=== PATIENT | female | born 1970 | race Caucasian/White ===

== ENCOUNTER 2016-12-27 12:07 | Emergency (ER) | payer BC ==
[2016-12-27 12:10] VITALS: BP 143/57
--- NOTE | 2016-12-27 17:17 | ED.ADGEN ---
Past History Past Medical History: No Pertinent History Past Surgical History: No Surgical History Alcohol Use: Rarely Drug Use: None Adult General Chief Complaint Chief Complaint Genital abscess HPI HPI Patient is a 46-year-old white female presents with soft tissue swelling, pain tenderness of external genitalia. She noted small bump approximately one week ago, which she squeezed and expressed pus. Gradually, her labia minora is swollen and become more swollen the past 2 days. She is unable to be seen by her PCP or [facility] until next week. Patient has history of Bartholin cysts. Review of Systems Review of Systems Review of symptoms as per history of present illness. Allergies Allergies Allergies Coded Allergies Type Severity Reaction Last Updated Verified No Known Drug Allergies 12/27/16 No Physical Exam Physical Exam Constitutional: Well developed, well nourished, alert discomfort secondary to pain. Genitalia: Started genitalia, right anterior labia minora tender, swollen and fluctuant approximately 3 times the size of left labia minora. No surrounding edema or cellulitis. Neurologic: Alert and oriented X 3, normal motor function, normal sensory function, no focal deficits noted. Psychologic: Affect normal, judgement normal, mood normal. [] Current Patient Data Vital Signs Vital Signs Date Time Temp Pulse Resp B/P Pulse Ox O2 Delivery O2 Flow Rate FiO2 12/27/16 12:10 98.0 77 18 100 Room Air EKG EKG [] Radiology/Procedures Radiology/Procedures [Incision and drainage Verbal consent was obtained to drain labia minora abscess. Area was prepped with Betadine in the region of greatest fluctuance was injected with 0.5 mL of 1 % lidocaine without epinephrine following which a simple stab incision was made with a #11 blade. Copious amount of purulent material was expressed. The wound was then milked for further and explored for loculations and irrigated. Attempt made pack wound was discontinued due to patient comfort] Impressions: Labial abscess Course & Med Decision Making Course & Med Decision Making Pertinent Labs and Imaging studies reviewed. (See chart for details) [Successful I&D of labial abscess. Will place patient on brief course of antibiotics with instructions to follow-up with [facility] next week.] Final Impression Final Impression [#1 labial abscess] Problems: Dragon Disclaimer Dragon Disclaimer This electronic medical record was generated, in whole or in part, using a voice recognition dictation system. LOLA RIVERA DO Dec 27, 2016 17:17
== END 2016-12-27 12:42 | disposition home or self-care (01) ==
LOC: ER 12:07
DX: N76.4 Abscess of vulva (principal)
CPT/HCPCS: 56405; 99284-25

== ENCOUNTER 2017-01-11 10:40 | Emergency (ER) | payer BC ==
[~2017-01-11] VITALS: Ht 172.7 cm; Wt 108.0 kg
[2017-01-11 10:40] VITALS: BP 121/57
[2017-01-11 11:28] LABS: BILIRUBIN,URINE NEG (NEG); CLARITY,URINE CLEAR; COLOR,URINE ORANGE
[2017-01-11 11:30] LABS: BACTERIA,URINE 0 /HPF (0-FEW); SQUAMOUS EPITHELIAL CELL,UR MOD /LPF
[2017-01-11] MEDS ORDERED: KETOROLAC 60 MG/2 ML VIAL. IM ONE (12:15)
--- NOTE | 2017-01-11 12:46 | RAD ---
CT of the abdomen and pelvis without contrast, 01/11/2017: History: Left flank pain Noncontrast scans were obtained through the urinary tract utilizing the renal stone protocol. No intrarenal calculi are identified. The right renal collecting system and right ureter are unremarkable. There are several bilateral pelvic calcifications compatible with phleboliths. There is slight dilatation of the left ureter. There is a 5 x 2 mm radiopacity along the posterior wall of the urinary bladder on the left compatible with a calculus lodged in the intramural segment of the distal left ureter. The partially filled urinary bladder is otherwise unremarkable. The unopacified liver is unremarkable. No gallbladder abnormality is seen. The pancreas is unremarkable. The spleen is within normal limits in size. The abdominal aorta is of normal caliber. No abdominal or pelvic adenopathy is seen. Several moderate sized low density foci are seen in the cervical region compatible with nabothian cysts. There is a 1.5 cm cyst in the left ovary and a 3.5 cm cyst in the right ovary. The bowel loops are not dilated. The appendix is visualized and shows no abnormality. No free fluid or free air is evident in the abdomen or pelvis. There is bilateral spondylolysis at L5 with a mild spondylolisthesis at L5-S1. There is associated foraminal encroachment, worse on the left. IMPRESSION: Small obstructing calculus at the left ureterovesical junction. PQRS Compliance Statement: One or more of the following individualized dose reduction techniques were utilized for this examination: 1. Automated exposure control 2. Adjustment of the mA and/or kV according to patient size 3. Use of iterative reconstruction technique
--- NOTE | 2017-01-11 12:58 | PHYS DOC ---
General Chief Complaint: FLANK PAIN Stated Complaint: LEFT SIDE FLANK PAIN Time Seen by MD: 10:53 Source: patient Exam Limitations: no limitations Problems: History of Present Illness Initial Comments Pt is 46/F to ED c/o L flank pain. Pt states yesterday developed left flank pain and urinary hesitancy. Pain moderate yesterday, this am pain radiating to LLQ. Pain worse today, no trauma/ fever/chills/n/v/d/cp/sob/hematuria/weight loss. OTC meds not helping. Timing/Duration: 24 hours Severity: severe Modifying Factors: improves with other Associated Symptoms: other Allergies: Coded Allergies: No Known Drug Allergies (Unverified , 12/27/16) Past Medical History Medical History: no pertinent history Surgical History: noncontributory Social History Smoker: non-smoker Alcohol: rarely Drugs: none Review of Systems Constitutional: denies chills, denies diaphoresis, denies fever, denies malaise Respiratory: denies cough, denies shortness of breath Cardiovascular: denies chest pain, denies palpitations Gastrointestinal: denies diarrhea, denies nausea, denies vomiting Genitourinary: see HPI Musculoskeletal: see HPI Psychiatric/Neurological: denies headache, denies numbness, denies paresthesia Physical Exam General Appearance: WD/WN, moderate distress Neck: full range of motion, supple Respiratory: normal breath sounds, no respiratory distress Gastrointestinal: normal bowel sounds, non tender, soft, no organomegaly Back: no CVA tenderness, no vertebral tenderness Extremities: non-tender, normal inspection Neurologic/Psychiatric: wheel presser II-XII nml as tested, no motor/sensory deficits, alert, oriented x 3 Skin: normal color, warm/dry Orders, Labs, Meds UA invalid due to OTC AZO neg PATIENT: LENIN DORAN ACCOUNT: [id number] : 1970 LOCATION: ER AGE: 46 SEX: F EXAM STATUS: REG ER ORD. PHYSICIAN: PENELOPE WOODS DO REASON: L flank pain r/o stone PROCEDURE: ABDOMEN PELVIS WO CONTRAST CT of the abdomen and pelvis without contrast, 01/11/2017: History: Left flank pain Noncontrast scans were obtained through the urinary tract utilizing the renal stone protocol. No intrarenal calculi are identified. The right renal collecting system and right ureter are unremarkable. There are several bilateral pelvic calcifications compatible with phleboliths. There is slight dilatation of the left ureter. There is a 5 x 2 mm radiopacity along the posterior wall of the urinary bladder on the left compatible with a calculus lodged in the intramural segment of the distal left ureter. The partially filled urinary bladder is otherwise unremarkable. The unopacified liver is unremarkable. No gallbladder abnormality is seen. The pancreas is unremarkable. The spleen is within normal limits in size. The abdominal aorta is of normal caliber. No abdominal or pelvic adenopathy is seen. Several moderate sized low density foci are seen in the cervical region compatible with nabothian cysts. There is a 1.5 cm cyst in the left ovary and a 3.5 cm cyst in the right ovary. The bowel loops are not dilated. The appendix is visualized and shows no abnormality. No free fluid or free air is evident in the abdomen or pelvis. There is bilateral spondylolysis at L5 with a mild spondylolisthesis at L5-S1. There is associated foraminal encroachment, worse on the left. IMPRESSION: Small obstructing calculus at the left ureterovesical junction. PQRS Compliance Statement: One or more of the following individualized dose reduction techniques were utilized for this examination: 1. Automated exposure control 2. Adjustment of the mA and/or kV according to patient size 3. Use of iterative reconstruction technique DICTATED AND SIGNED BY: RASTA OTERO MD DATE: 01/11/17 1236 CC: PCP,NO; PENELOPE WOODS DO ~ Departure Time of Disposition: 13:13 Disposition: 01 HOME, SELF-CARE Diagnosis: Distal left ureterolithiasis, Condition: STABLE Patient Instructions: Diet for Kidney Stones, Kidney Stones, [id number] Additional Instructions: Work excuse thru 4/3. Aggressive hydration with gatorade, water. Rx: bactrim ds, zofran odt, flomax, norco 5mg #30 You will need to follow up with a urologist. Dr Ivan Torrez [facility] [address] [place] [address] call to schedule appointment. Return to ED with new or changing symptoms. PENELOPE WOODS DO Jan 11, 2017 12:58
[2017-01-11] MEDS ORDERED: SULF1TAB24 PO (13:13)
[2017-01-11] MEDS ORDERED: ONDA4TAB10 SL (13:13)
[2017-01-11] MEDS ORDERED: HYDR-971 PO (13:13)
[2017-01-11] MEDS ORDERED: TAMS0.4C97 PO (13:13)
== END 2017-01-11 13:35 | disposition home or self-care (01) ==
LOC: ER 10:40
DX: N20.1 Calculus of ureter (principal)
CPT/HCPCS: 74176; 81001; 81025; 96372; 99285; J1885

== ENCOUNTER → 2017-01-15 | Outpatient (CLI) | payer BC ==
[2017-01-11 12:17] VITALS: BP 117/59
[~2017-01-15] MED LIST: HYDR-971 PO; ONDA4TAB10 SL; SULF1TAB24 PO; TAMS0.4C97 PO
--- NOTE | 2017-01-15 10:32 | RAD ---
Abdomen radiograph History: Distal left ureteral calculus. Comparison: CT abdomen pelvis 01/11/2017. Findings: AP view of the abdomen. Bowel gas pattern is nonspecific, without evidence of obstruction. Both renal shadows are partially obscured by bowel gas and stool. Superior right renal shadow was not included on examination. No convincing calcifications seen over the expected course of either ureter. There are several calcifications in the pelvis. There is a roughly triangular calcification in the left hemipelvis which measures 4 mm in maximum dimension. It is uncertain if this represents the previously identified UVJ stone versus a nearby phlebolith. Impression: 1. 4 mm calcification is seen in the left hemipelvis. It is uncertain if this represents phlebolith versus persistent distal left ureteral stone.
== END | disposition home or self-care (01) ==
LOC: DXRAD 09:50
PROVIDERS: ATTEND Urology
DX: N20.1 Calculus of ureter (principal)
CPT/HCPCS: 74000

== ENCOUNTER 2017-12-01 13:29 | Emergency (ER) | payer OTHER ==
[~2017-12-01] VITALS: Ht 172.7 cm; Wt 108.0 kg
[2017-12-01] MEDS ORDERED: NOREPINEPHRINE BITARTRATE 8 MG in IV NORMAL SALINE 250ML 250 ML IV PRN (14:45)
[2017-12-01] MEDS ORDERED: IV NORMAL SALINE 1,000ML 1,000 ML IV ONE (14:45)
[2017-12-01] MEDS ORDERED: 0.9 % SODIUM CHLORIDE 10 ML DISP.SYRIN. IV PRN (14:45)
[2017-12-01 14:58] LABS: BASO # 0.1 x10^3/uL (0.0-0.2); BASO % 1 % (0-3); EOS # 0.4 x10^3/uL (0.0-0.7); EOS % 4 % (0-3); HEMATOCRIT 35.9 % (36.0-47.0); HEMOGLOBIN 12.4 g/dL (12.0-15.5); LYMPH # 0.8 x10^3/uL (1.0-4.8); LYMPH % 8 % (24-48); MEAN CORPUSCULAR HEMOGLOBIN 31 pg (25-35); MEAN CORPUSCULAR HGB CONC 35 g/dL (31-37); MEAN CORPUSCULAR VOLUME 90 fL (79-100); MONO # 0.8 x10^3/uL (0.0-1.1); MONO % 9 % (0-9); NEUT # 7.3 x10^3uL (1.8-7.7); NEUT % 78 % (31-73); PLATELET COUNT 284 x10^3/uL (140-400); RED BLOOD COUNT 3.98 x10^6/uL (3.50-5.40); RED CELL DISTRIBUTION WIDTH 12.8 % (11.5-14.5); WHITE BLOOD COUNT 9.3 x10^3/uL (4.0-11.0)
[2017-12-01 15:37] LABS: ALBUMIN 2.8 g/dL (3.4-5.0); ALBUMIN/GLOBULIN RATIO 0.6 (1.0-1.7); CALCIUM 8.9 mg/dL (8.5-10.1); CREATININE 0.8 mg/dL (0.6-1.0); GFR 77.6; POTASSIUM 3.9 mmol/L (3.5-5.1); TOTAL BILIRUBIN 0.4 mg/dL (0.2-1.0); TOTAL PROTEIN 7.4 g/dL (6.4-8.2)
--- NOTE | 2017-12-01 17:44 | PHYS DOC ---
Past History Past Medical History: No Pertinent History Past Surgical History: , Other Alcohol Use: Rarely Drug Use: None Adult General Chief Complaint Chief Complaint: POST-OP PROBLEM HPI HPI Patient is a 47 year old F who presents with fevers, chills and drainage from her surgical site. Sammie had a tummy tuck and liposuction on November 12, 2017. On November 29 she developed fever sweats and chills. She was started on an antibiotic on the which the last time that she was seen by her surgeon. Starting this morning she noted moderate drainage from her lower abdominal incision as well as from her belly button. She does feel that her lower abdomen is firm and mildly painful. She also has had associated fever with a MAXIMUM TEMPERATURE of 102.0 last night. Since that time she has been taking ibuprofen 800 mg every 6 hours, Tylenol and Aleve. She does feel that this is helped her symptoms. She has no other associated symptoms at this time. She has no other exacerbating or relieving factors this time Review of Systems Review of Systems Constitutional: Negative except history of present illness Eyes: Denies change in visual acuity, redness, or eye pain [] HENT: Denies nasal congestion or sore throat [] Respiratory: Denies cough or shortness of breath [] Cardiovascular: No additional information not addressed in HPI [] GI: Denies nausea, vomiting, bloody stools or diarrhea [] : Denies dysuria or hematuria [] Musculoskeletal: Denies back pain or joint pain [] Integument: Negative except history of present illness Neurologic: Denies headache, focal weakness or sensory changes [] Endocrine: Denies polyuria or polydipsia [] All other systems were reviewed and found to be within normal limits, except as documented in this note. Family History Family History No pertinent family medical history was reported Current Medications Current Medications Current Medications Medications (Trade) Dose Ordered Sig/Beto Start Time Stop Time Status Last Admin Dose Admin Norepinephrine Bitartrate 8 mg/ Sodium Chloride 258 ml @ 0 mls/hr CONT PRN 12/01/17 14:45 Sodium Chloride 1,000 ml @ 1,000 mls/hr 1X ONCE 12/01/17 14:45 12/01/17 15:45 DC 12/01/17 15:14 1,000 MLS/HR Sodium Chloride (Normal Saline Flush) 10 ml QSHIFT PRN 12/01/17 14:45 Allergies Allergies Allergies Coded Allergies Type Severity Reaction Last Updated Verified No Known Drug Allergies 12/27/16 No Physical Exam Physical Exam Constitutional: Well developed, well nourished, no acute distress, non-toxic appearance. [] HENT: Normocephalic, atraumatic, Eyes:EOMI, conjunctiva normal, no discharge. [] Neck: Normal range of motion, no tenderness, supple, no stridor. [] Cardiovascular:Heart rate regular rhythm, Lungs & Thorax: Bilateral breath sounds clear to auscultation [] Abdomen: Minimal drainage noted from the belly button with mild erythema noted around the wound. Suprapubic transverse incision noted to have minimal dehiscence approximately 10 cm with moderate purulent drainage as well as some serous sanguinous drainage. Surrounding the lower abdominal incision induration and erythema is noted Skin: Refer to the abdomen exam Back: No tenderness, no CVA tenderness. [] Extremities: No tenderness, no cyanosis, no clubbing, ROM intact, no edema. [] Neurologic: Alert and oriented X 3, normal motor function, normal sensory function, no focal deficits noted. [] Psychologic: Affect normal, judgement normal, mood normal. [] Current Patient Data Vital Signs Vital Signs Date Time Temp Pulse Resp B/P (MAP) Pulse Ox O2 Delivery O2 Flow Rate FiO2 12/01/17 15:30 91 18 126/64 (84) 98 Room Air 12/01/17 13:29 97.7 Lab Results Laboratory Tests Test 12/01/17 14:30 12/01/17 15:00 White Blood Count 9.3 x10^3/uL (4.0-11.0) Red Blood Count 3.98 x10^6/uL (3.50-5.40) Hemoglobin 12.4 g/dL (12.0-15.5) Hematocrit 35.9 % (36.0-47.0) L Mean Corpuscular Volume 90 fL (79-100) Mean Corpuscular Hemoglobin 31 pg (25-35) Mean Corpuscular Hemoglobin Concent 35 g/dL (31-37) Red Cell Distribution Width 12.8 % (11.5-14.5) Platelet Count 284 x10^3/uL (140-400) Neutrophils (%) (Auto) 78 % (31-73) H Lymphocytes (%) (Auto) 8 % (24-48) L Monocytes (%) (Auto) 9 % (0-9) Eosinophils (%) (Auto) 4 % (0-3) H Basophils (%) (Auto) 1 % (0-3) Neutrophils # (Auto) 7.3 x10^3uL (1.8-7.7) Lymphocytes # (Auto) 0.8 x10^3/uL (1.0-4.8) L Monocytes # (Auto) 0.8 x10^3/uL (0.0-1.1) Eosinophils # (Auto) 0.4 x10^3/uL (0.0-0.7) Basophils # (Auto) 0.1 x10^3/uL (0.0-0.2) Lactic Acid Level < 0.3 mmol/L (0.4-2.0) L Sodium Level 142 mmol/L (136-145) Potassium Level 3.9 mmol/L (3.5-5.1) Chloride Level 105 mmol/L (98-107) Carbon Dioxide Level 26 mmol/L (21-32) Anion Gap 11 (6-14) Blood Urea Nitrogen 22 mg/dL (7-20) H Creatinine 0.8 mg/dL (0.6-1.0) Estimated GFR (Cockcroft-Gault) 77.6 BUN/Creatinine Ratio 28 (6-20) H Glucose Level 94 mg/dL (70-99) Calcium Level 8.9 mg/dL (8.5-10.1) Total Bilirubin 0.4 mg/dL (0.2-1.0) Aspartate Amino Transferase (AST) 31 U/L (15-37) Alanine Aminotransferase (ALT) 34 U/L (14-59) Alkaline Phosphatase 112 U/L (46-116) Total Protein 7.4 g/dL (6.4-8.2) Albumin 2.8 g/dL (3.4-5.0) L Albumin/Globulin Ratio 0.6 (1.0-1.7) L EKG EKG [] Radiology/Procedures Radiology/Procedures [] Course & Med Decision Making Course & Med Decision Making Pertinent Labs and Imaging studies reviewed. (See chart for details) Margarita surgeon was contacted multiple times however the case review was limited [place] and cell phone coverage was poor. NEREIDA [facility] was contacted by phone. The surgeon at did contact Sammie's surgical group to discuss the care she received and develop a plan for further management. 's surgery team called me back at about 7 PM happy to accept patient patient felt it was necessary to get evaluated for surgical drainage of her "" infected seroma. Patient understands he can follow-up on Sunday with her general surgeon who did this plastic surgery. She is on day 3 of Keflex, she is using Tylenol Motrin for fevers and pain which is markedly improved and she admits that her symptoms have improved. The drainage from the belly button has increased. On my examination patient demonstrates some slight serosanguineous and questionable purulent drainage from the wound around the umbilicus. It is minimally tender with mild erythema. She has no sickness and soft tissue swelling or fevers. She has negative lactic acid, White blood cell count, the wound edges are otherwise clean. NEREIDA again was happy to follow-up this patient if necessary. Given the option patient and family at bedside with prefer to go home to have an additional antibiotic to try to treat her cellulitis/wound infection and follow-up on Sunday with her primary plastic surgeon in an outpatient setting to help reevaluate and drinking wound if necessary. Patient I had a long discussion about wound management and reasons to return. She is happy with disposition at this point she will get a dose of doxycycline, Tylenol or Motrin for pain and fevers although she is not exhibiting any fevers at this time. discharge: I've spoken with the patient and/or caregivers. I've explained the patient's condition, diagnosis and treatment plan based on information available to me at this time. I've answered the patient's and/or caregivers questions and addressed any concerns. The patient and/or caregivers have a good understanding the patient's diagnosis, condition and treatment plan as can be expected at this point. Vital signs have been stabilized. The patient's condition is stable for discharge from the emergency department. The patient will pursue further outpatient evaluation with her primary care provider or other designated consulting physician as outlined in the discharge instructions. Patient and/or caregivers are agreeable to this plan of care and follow-up instructions have been explained in detail. The patient and/or caregivers have received these instructions in written format and expressed understanding of these discharge instructions. The patient and her caregivers are aware that if any significant change in condition or worsening of symptoms should prompt him to immediately return to this of the closest emergency department. If an emergent department is not readily available I would encourage him to call 911. Kerri Disclaimer Kerri Disclaimer This electronic medical record was generated, in whole or in part, using a voice recognition dictation system. Departure Departure: Impression: Primary Impression: Postoperative complication Additional Impression: Cellulitis Disposition: XFER OTHER Condition: STABLE Referrals: PCP,NO (PCP) Patient Instructions: Cellulitis, Wound Care, [id number] Additional Instructions: discharge: I've spoken with the patient and/or caregivers. I've explained the patient's condition, diagnosis and treatment plan based on information available to me at this time. I've answered the patient's and/or caregivers questions and addressed any concerns. The patient and/or caregivers have a good understanding the patient's diagnosis, condition and treatment plan as can be expected at this point. Vital signs have been stabilized. The patient's condition is stable for discharge from the emergency department. The patient will pursue further outpatient evaluation with her primary care provider or other designated consulting physician as outlined in the discharge instructions. Patient and/or caregivers are agreeable to this plan of care and follow-up instructions have been explained in detail. The patient and/or caregivers have received these instructions in written format and expressed understanding of these discharge instructions. The patient and her caregivers are aware that if any significant change in condition or worsening of symptoms should prompt him to immediately return to this of the closest emergency department. If an emergent department is not readily available I would encourage him to call 911. Please follow-up with your plastic surgeon on Sunday as planned Scripts Acetaminophen (TYLENOL) 325 Mg Tablet 1-2 TAB PO QID, #30 TAB 0 Refills Prov: KATIE MARTINEZ MD 12/01/17 Ibuprofen (IBUPROFEN) 800 Mg Tablet 1 TAB PO TID, #30 TAB Prov: KTAIE MARTINEZ MD 12/01/17 Doxycycline Monohydrate (DOXYCYCLINE MONOHYDRATE) 100 Mg Capsule 1 CAP PO BID, #20 CAP Prov: KATIE MARTINEZ MD 12/01/17 Problem Qualifiers ROLLY EATON MD Dec 01, 2017 17:43 KATIE MARTINEZ MD Dec 01, 2017 19:28
[2017-12-01] MEDS ORDERED: PIPERACILLIN/TAZOBACTAM 3.375 GM VIAL IV ONE (17:48)
[2017-12-01] MEDS ORDERED: IV NORMAL SALINE 50ML 50 ML ONE (17:48)
[2017-12-01] MEDS ORDERED: PIPERACILLIN/TAZOBACTAM 3.375 GM in IV NORMAL SALINE 50ML 50 ML IV ONE (18:00)
[2017-12-01] MEDS ORDERED: IBUP800T19 PO (19:27)
[2017-12-01] MEDS ORDERED: ACET325T9 PO (19:27)
[2017-12-01] MEDS ORDERED: DOXY100C14 PO (19:27)
[2017-12-01] MEDS ORDERED: ACETAMINOPHEN 325 MG TABLET PO ONE (19:30)
[2017-12-01] MEDS ORDERED: IBUPROFEN 600 MG TABLET. PO ONE (19:30)
[2017-12-01 19:50] VITALS: BP 113/54
[2017-12-01] MEDS ORDERED: DOXYCYCLINE HYCLATE 100 MG TABLET PO ONE (20:00)
== END 2017-12-01 19:50 | disposition home or self-care (01) ==
LOC: ER 13:29
DX: K91.840 Postprocedural hemorrhage of a digestive system organ or structure following a digestive system procedure (principal); L03.311 Cellulitis of abdominal wall
CPT/HCPCS: 36415; 80053; 83605; 85025; 87040; 96361; 96365; 99284; J2543; J7030